=== PATIENT | female | born 1950 | race Caucasian/White ===

== ENCOUNTER 2020-03-22 19:55 | Emergency (ER) | payer BC, MEDICARE ==
[~2020-03-22] VITALS: Ht 160 cm; Wt 71.0 kg
[2020-03-22] MEDS ORDERED: LEVOTHYROXIN50 MCG PO (20:22)
[2020-03-22] MEDS ORDERED: IBUPROFEN600 MG PO (21:41)
[2020-03-22 22:13] VITALS: BP 160/72
== END 2020-03-22 22:13 | disposition home or self-care (01) | DRG 563 ==
LOC: ED 19:55
PROC: 2W3DX1Z Immobilization of Left Lower Arm using Splint (ICD-10-PCS; principal; 2020-03-22)
DX: S62.317A Displaced fracture of base of fifth metacarpal bone, left hand, initial encounter for closed fracture (principal); W01.0XXA Fall on same level from slipping, tripping and stumbling without subsequent striking against object, initial encounter; Y92.480 Sidewalk as the place of occurrence of the external cause